=== PATIENT | female | born 1985 | race Asian ===

== ENCOUNTER 2016-11-01 13:35 | Outpatient (CLI) | payer OTHER ==
[~2016-11-01] VITALS: Ht 165.1 cm; Wt 62.0 kg
[2016-11-01 14:09] VITALS: BP 110/65
[2016-11-01] MEDS ORDERED: PRENATAL TABLE1 EAC3 PO (14:20)
[2016-11-01 15:01] LABS: ADD MIUA? YES; BILIRUBIN NEGATIVE; BLOOD SMALL; COLOR YELLOW ((YELLOW)); GLUCOSE (STRIP) NEGATIVE; KETONES NEGATIVE; LEUKOCYTES TRACE; NITRITE NEGATIVE; PROTEIN (STRIP) NEGATIVE; SPECIFIC GRAVITY 1.014 (1.000-1.030); UROBILINOGEN 0.2 MG/DL (0.2-1.0)
[2016-11-01 15:23] LABS: AMPHETAMINES QUANT VALUE 0 NG/ML; BARBITUATES QUANT VALUE 0 NG/ML; BENZODIAZEPINES QUANT VALUE 0 NG/ML; BENZODIAZEPINES, URINE SCREEN Negative (200 ng/mL); MARIJUANA QUANT VALUE 0 NG/ML; OPIATES QUANTITATIVE VALUE 0 NG/ML; PHENCYCLIDINE QUANT VALUE 0 NG/ML
[2016-11-01 15:27] VITALS: BP 105/64
[2016-11-01 15:40] LABS: CASTS NONE SEEN /LPF; EPITHELIAL CELLS 3+ /HPF; MUCUS TRACE /LPF
[2016-11-01 15:41] LABS: BACTERIA RARE /HPF; RED BLOOD CELLS 0-5 /HPF (0-5); WHITE BLOOD CELLS 0-5 /HPF (0-5)
[2016-11-02 05:52] LABS: CANDIDA DNA PROBE NEGATIVE; GARDNERELLA DNA PROBE POSITIVE; INTERNAL CONTROL VALID? YES
== END 2016-11-01 16:40 | disposition home or self-care (01) ==
LOC: LDRP-OP 13:35 → 2WEST 13:36 → LDRP-OP 04-20 10:06
PROVIDERS: Advanced Practice Midwife
DX: O46.92 Antepartum hemorrhage, unspecified, second trimester (principal); Z3A.20 20 weeks gestation of pregnancy
CPT/HCPCS: 59025; 76805; 80306 90; 81003; 87077; 87086; 87186; 87480; 87510; 87660; G0378

== ENCOUNTER 2017-03-26 07:53 | Inpatient (IN) | payer OTHER ==
[2017-03-26] VITALS (42 sets, daily range): BP systolic 104–152; BP diastolic 59–105
[~2017-03-26] VITALS: Ht 165.1 cm; Wt 79.1 kg
[~2017-03-26 07:53] MED LIST: PRENATAL TABLE1 EAC3 PO
[2017-03-26 09:36] LABS: EOSINOPHIL (%) 0.6 % (0-5); HEMATOCRIT 39.5 % (36.0-46.0); IMMATURE GRANULOCYTE (%) 0.3 % (0.0-0.7); INSTRUMENT ABS NEUTROPHIL CT 4.4 K/uL; LYMPHOCYTE COUNT 1.5 K/uL (1.0-2.8); MCH 30.2 PG (29.0-34.0); MCHC 34.2 G/DL (30.0-36.0); MCV 88.4 FL (83-99); MEAN PLAT.VOLUME 10.8 uM^3 (9.5-12.4); MONOCYTE (%) 10.8 % (3-12); MONOCYTE COUNT 0.7 K/uL (0-0.8); NEUTROPHIL (%) 65.4 % (45-76); NEUTROPHIL COUNT 4.4 K/uL (1.8-6.4); PLATELET COUNT 171 K/uL (156-360); RBC DIS.WIDTH-CV 13.2 % (11.8-14.6); RBC DIS.WIDTH-SD 42.7 % (39-53); RED BLOOD COUNT 4.47 M/uL (3.80-5.20); WHITE BLOOD COUNT 6.8 K/uL (4.1-10.2)
[2017-03-27] VITALS (12 sets, daily range): BP systolic 87–136; BP diastolic 52–91
[2017-03-27 02:14] LABS: HEMATOCRIT 31.9 % (36.0-46.0); MCH 30.9 PG (29.0-34.0); MCHC 34.2 G/DL (30.0-36.0); MCV 90.4 FL (83-99); MEAN PLAT.VOLUME 10.9 uM^3 (9.5-12.4); PLATELET COUNT 163 K/uL (156-360); RBC DIS.WIDTH-CV 13.2 % (11.8-14.6); WHITE BLOOD COUNT 16.9 K/uL (4.1-10.2)
[2017-03-27 02:18] LABS: RED BLOOD COUNT 3.53 M/uL (3.80-5.20)
[2017-03-28 06:54] LABS: EOSINOPHIL COUNT 0.1 K/uL (0-0.3); HEMATOCRIT 23.3 % (36.0-46.0); IMMATURE GRANULOCYTE (%) 0.4 % (0.0-0.7); IMMATURE GRANULOCYTE COUNT 0.1 K/uL; INSTRUMENT ABS NEUTROPHIL CT 9.5 K/uL; LYMPHOCYTE COUNT 2.7 K/uL (1.0-2.8); MCH 30.4 PG (29.0-34.0); MCV 92.1 FL (83-99); MEAN PLAT.VOLUME 10.7 uM^3 (9.5-12.4); MONOCYTE (%) 8.7 % (3-12); MONOCYTE COUNT 1.2 K/uL (0-0.8); NEUTROPHIL (%) 70.1 % (45-76); NEUTROPHIL COUNT 9.5 K/uL (1.8-6.4); PLATELET COUNT 142 K/uL (156-360); RBC DIS.WIDTH-CV 13.9 % (11.8-14.6); RBC DIS.WIDTH-SD 46.4 % (39-53); WHITE BLOOD COUNT 13.5 K/uL (4.1-10.2)
[2017-03-28 07:01] LABS: RED BLOOD COUNT 2.53 M/uL (3.80-5.20)
[2017-03-28 14:40] VITALS: BP 106/58
[2017-03-28 14:50] VITALS: BP 127/57
[2017-03-29 06:58] LABS: HEMATOCRIT 24.8 % (36.0-46.0); MCV 92.5 FL (83-99)
[2017-03-29 08:44] VITALS: BP 111/74
[2017-03-29] MEDS ORDERED: FERROCITE324 MG PO (10:35)
[2017-03-29] MEDS ORDERED: IBUPROFEN800 MG PO (10:35)
[2017-03-29] MEDS ORDERED: COL-RITE100 M1 PO (10:36)
[2017-03-29 15:00] VITALS: BP 108/71
== END 2017-03-29 19:39 | disposition home or self-care (01) | DRG 774 ==
LOC: LDRP-OP → 2WEST 07:54 → LDRP-OP 04-20 16:56
PROVIDERS: Advanced Practice Midwife; Obstetrics & Gynecology Obstetrics
PROC: 10D07Z3 Extraction of Products of Conception, Low Forceps, Via Natural or Artificial Opening (ICD-10-PCS; principal; 2017-03-26)
PROC: 0DQP0ZZ Repair Rectum, Open Approach (ICD-10-PCS; 2017-03-26)
DX: O70.3 Fourth degree perineal laceration during delivery (principal); Z3A.40 40 weeks gestation of pregnancy; Z37.0 Single live birth; O99.02 Anemia complicating childbirth; O48.0 Post-term pregnancy; D62 Acute posthemorrhagic anemia; E66.3 Overweight; O72.1 Other immediate postpartum hemorrhage; O62.1 Secondary uterine inertia
CPT/HCPCS: 85014; 85018; 85025; 85027; 86850; 86900; 86901; C1755; G0378; J7120